=== PATIENT | female | born 1980 | race African-American/Black ===

== ENCOUNTER 2016-11-27 21:08 | Observation (INO) ==
[2016-11-27] MEDS ORDERED: NITROGLYCERIN SL 0.4 MG TABLET SL STA (21:56)
[2016-11-27] MEDS ORDERED: NITROGLYCERIN SL 0.4 MG TABLET SL ONE (21:56)
[2016-11-27] MEDS ORDERED: MORPHINE 2 MG/1 ML SYRINGE ONE (21:56)
[2016-11-27] MEDS ORDERED: ONDANSETRON 4 MG/2 ML VIAL IV STA (21:56)
[2016-11-27] MEDS ORDERED: MORPHINE 2 MG/1 ML SYRINGE IV STA (21:56)
[2016-11-27] MEDS ORDERED: ONDANSETRON 4 MG/2 ML VIAL ONE (21:56)
[2016-11-27 22:04] LABS: Basophils # 0.1 10*3/uL (0.0-0.2); Basophils % 0.6 % (0.0-0.8); Eosinophils # 0.2 10*3/uL (0.0-0.87); Eosinophils % 2.2 % (0.00-10.9); Immature Granulocytes % 0.4 %; Immature Granulocytes Absolute 0.04 #; Lymphocytes # 3.3 10*3/uL (1.4-4.0); Lymphocytes % 32.5 % (21.3-54.2); Mean Corpuscular HGB Conc 33.3 GM/DL (32-36); Mean Corpuscular Hemoglobin 30 PG (27-34); Mean Corpuscular Volume 90.9 FL (87-102); Mean Platelet Volume 10.4 FL (9.6-12.0); Monocytes # 0.6 10*3/uL (0.11-0.8); Monocytes % 5.8 % (1.7-12.7); Neutrophils # 5.9 10*3/uL (1.4-7.4); Neutrophils % 58.5 % (38.7-73.9); Platelet Count 366 T/CUMM (130-400); Red Blood Count 3.63 MC/CUMM (3.8-5.5); Red Cell Distribution Width 12.9 % (9.3-17.3); White Blood Count 10.1 T/CUMM (4-12)
[2016-11-27 22:13] LABS: PT Patient Result 10.4 SECS; Partial Thromboplastin Time 27.9 SECS (0-40)
--- NOTE | 2016-11-27 22:17 | Emergency Department Note ---
I, Beth Byrnes, am scribing for, and in the presence of, Adilia Colby DO 22: 05. I, Adilia Cobly DO, personally performed the services described in this documentation, ascribed by Beth Byrnes in my presence, and it is both accurate and complete . 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 She states this has happened before but she has not seeked medical help. Pt reports the pain is in the middle of her chest. Pt denies a burning pain, abdominal pain , SOB, N/V, or a sour taste in her mouth. Pt states she thought the pain was gas. Pt denies a family history of heart problems at a young age. She reports she does have DM, HTN, and high cholesterol that she does take medication for. Pt states her job "gets on her nerves" and the pain is every now and then when she is not at work. Pt is crying during exam and states it is due to the pain and she is "sensitive." Pt's PCP is Dr. Bower. No other complaints/pain in ED. Onset (ago): hour(s) Consistency: constant Severity: mild, moderate Quality: sharp Date of Last Menstrual Period: NOW Allergies/Adverse Reactions: Allergies Allergy/AdvReac Type Severity Reaction Status Date / Time No Known Allergies Allergy Unverified 11/27/16 21:15 Review of System - Review of System 12 point system: reviewed and no additional remarkable complaints except as stated - Review of System Constitutional: Absent: fever Head/Ears/Nose/Throat: Absent: earache Respiratory: Absent: cough, respiratory distress Cardiovascular: Present: chest pain Gastrointestinal: Absent: abdominal pain, nausea, vomiting Musculoskeletal: Absent: arm pain, back pain, leg pain, neck pain Skin: Absent: rash Neurological: Absent: headache Medical,Surgical,& Family Hx - Medical History Cardio: History of: Hypertension Endocrine: History of: Diabetes Mellitus (IDDM), Dyslipidemia - Family History Family History: Reports;: Family Cancer, Family Diabetes, Family Hypertension - Social History Smoking Status: Never smoker Frequency of Alcohol Use: Rarely Type of Drug Use: None Exam Vital Signs: Vital Signs Temperature 97.4 F L 11/27/16 21:20 Pulse Rate 114 H 11/27/16 21:20 Respiratory Rate 20 11/27/16 21:20 Blood Pressure 181/107 11/27/16 21:20 O2 Sat by Pulse Oximetry 97 11/27/16 21:15 - General General appearance: alert, in no apparent distress - Head Head exam: Present: atraumatic, normocephalic - Eye Eye exam: Present: PERRL, EOMI - ENT ENT exam: Present: mucous membranes moist. Absent: mucous membranes dry - Neck Neck exam: Present: full ROM. Absent: tenderness - Chest Chest inspection: Present: symmetric chest wall rise. Absent: tenderness - Respiratory Respiratory exam: Present: normal lung sounds bilaterally. Absent: respiratory distress - Cardiovascular Cardiovascular exam: Present: regular rate, normal rhythm, normal heart sounds - Abdominal Exam Abdominal exam: Present: soft. Absent: tenderness - Extremities Exam Extremities exam: Present: full ROM. Absent: tenderness, pedal edema - Back Exam Back exam: Present: full ROM. Absent: tenderness - Neurological Exam Neurological exam: Present: alert, oriented X3, CN II-XII intact. Absent: motor sensory deficit - Psychiatric Psychiatric exam: Present: normal affect, normal mood - Skin Skin exam: Present: warm, dry Course Course Narrative: Patient improved with morphine and sublingual nitro. Will be admitted for chest pain with serial cardiac enzymes done to Dr. Karthik Escalona hospitalist who agrees to admission. Patient is stable at this time Results - Labs CBC & BMP: 11/27/16 21:13 11/27/16 21:13 Lab Results: I have reviewed the patients labs Labs: Laboratory Tests 11/27/16 21:13 RBC 3.63 L Hgb 11.0 L Hct 33.0 L Laboratory Tests 11/27/16 11/27/16 11/27/16 21:13 21:13 21:13 INR 1.0 PT Patient/Control Mix 10.4 Circ Anticoag PTT 27.9 Anion Gap 16.8 H Glucose 178 H Total Creatine Kinase 238 H B-Natriuretic Peptide < 2 L Globulin 3.9 H Albumin/Globulin Ratio 0.9 L - EKG EKG results: interpreted by ERMD, sinus rhythm EKG shows: tachycardia - Diagnostic Findings Procedure: Chest x-ray: report reviewed by me (No acute cardiopulmonary pathology identified.) Disposition Clinical Impression: Chest pain Case discussed with: patient, patient's family Disposition: Still a Patient Condition: Stable Time of Disposition: 23:19
[2016-11-27 22:25] LABS: Alanine Aminotransferase 15 U/L (13-56); Albumin 3.8 G/DL (3.4-5.0); Alkaline Phosphatase 90 U/L (45-117); Aspartate Amino Transferase 13 U/L (0-37); Bilirubin,Total < 0.39 MG/DL (0.2-1.0); Blood Urea Nitrogen 13 MG/DL (7-18); Calcium 9.3 MG/DL (8.5-10.1); Glucose 178 MG/DL (74-106); Osmolality,Calculated 284.3 MOS/KG (273-304); Potassium 3.8 MMOL/L (3.5-5.1); Sodium 141 MMOL/L (136-145); Total Protein 7.7 G/DL (6.4-8.3); Troponin I Only < 0.015 NG/ML (0.00-0.045)
--- NOTE | 2016-11-27 22:29 | XRay Report ---
Portable chest Date: 11/27/2016 Clinical history: Chest pain Comparison: None Technique: Portable AP sitting chest Findings: The heart is normal in size. The lungs are clear. Unremarkable mediastinum and osseous structures. Overlapping soft tissues of the left lung base. Impression: No acute cardiopulmonary pathology identified. PROCEDURE INTERPRETED AT [facility] DEPARTMENT OF RADIOLOGY Final Report Signed by: Dr. Ana Hidalgo
--- NOTE | 2016-11-28 01:42 | Hospitalist History & Physical ---
Assessment and Plan (1) History of hypertension Status: Acute Current Visit: Yes (2) Diabetes Status: Acute Current Visit: Yes (3) History of increased cholesterol Status: Acute Current Visit: Yes (4) Chest pain Status: Acute Assessment and plan: Our plan for this patient will be admitting her to the telemetry. Draw serial cardiac enzymes and consult cardiology. Continue home meds as appropriate monitor her Accu-Cheks. Current Visit: Yes History of Present Illness Chief complaint: Chest pain History of present illness: Ms. Marquez is a 36 year old female with past medical history significant for increased cholesterol, hypertension and diabetes who was in his normal state of health until last . 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 She says last at work she developed a pain on the left side of her chest. She describes it as sharp. And it resolved. She did not seek medical attention. Then tonight while back at work the pain returned. She broke out in a cold sweat. It did not really make her short of breath. There is no exertional component associated with it. She got concerned and thought she was having a heart attack came to our hospital for further evaluation. I was consulted for admission. Allergies Allergy/AdvReac Type Severity Reaction Status Date / Time No Known Allergies Allergy Unverified 11/27/16 21:15 Medical,Surgical,& Family Hx - Medical History Cardio: History of: Hypertension Endocrine: History of: Diabetes Mellitus (IDDM), Dyslipidemia - Surgical History Reproductive Surgeries: Surgical HX of;: Dilation and Curettage - Family History Family History: Reports;: Family Cancer, Family Diabetes, Family Hypertension - Social History Smoking Status: Never smoker Frequency of Alcohol Use: Rarely Type of Drug Use: None 12 point system: reviewed and no additional remarkable complaints except as stated Exam - Constitutional Vitals: Period Temp Pulse Resp BP Sys/Jose Pulse Ox Last 24 Hr 97.4 F-97.4 F 114-114 18-20 181-181/107-107 97 General appearance: morbidly obese - Head Head exam: Present: normal inspection - Eye Eye exam: Present: EOMI Pupils: Present: LUIGI - ENT ENT exam: Present: normal exam - Neck Neck exam: Present: normal inspection - Respiratory Respiratory exam: Present: clear to auscultation bilaterally - Cardiovascular Cardiovascular exam: Present: regular rate and rhythm - GI/Abdominal GI/Abdominal exam: Present: normal bowel sounds - Extremities Exam Extremities exam: Present: normal inspection - Back Exam Back exam: Present: normal inspection - Neurological Exam Neurological exam: Present: alert - Psychiatric Psychiatric exam: Present: normal affect - Skin Skin exam: Present: normal color Results - Labs CBC & BMP: 11/27/16 21:13 11/27/16 21:13
[2016-11-28] MEDS ORDERED: ONDANSETRON 4 MG/2 ML VIAL IV PRN (01:50)
[2016-11-28] MEDS ORDERED: ZALEPLON 5 MG CAPSULE PO PRN (01:50)
[2016-11-28] MEDS ORDERED: DEXTROSE 50% 25 GM/50 ML VIAL IV PRN (01:59)
[2016-11-28] MEDS ORDERED: GLUCAGON 1 MG VIAL IM PRN (01:59)
[2016-11-28] MEDS ORDERED: INSULIN REGULAR 100 UNIT/ML ONE (02:53)
[2016-11-28] MEDS ORDERED: INSULIN REGULAR 100 UNIT/ML SUBCUT STA (02:56)
[2016-11-28] MEDS ORDERED: NITROGLYCERIN 2% OINT 1 INCH/GM PACK TOP ONE (05:34)
--- NOTE | 2016-11-28 05:39 | EKG Report ---
Please refer to the EKG image. Final interpretation is pending.
[2016-11-28] MEDS: NITROGLYCERIN 2% OINT 1 INCH/GM PACK TOP SCH ×3 (05:51→17:10)
--- NOTE | 2016-11-28 06:03 | EKG Report ---
Please refer to the EKG image. Final interpretation is pending.
[2016-11-28] MEDS ORDERED: ASPIRIN EC 325 MG TABLET PO SCH (09:00)
[2016-11-28] MEDS ORDERED: ENOXAPARIN 40 MG/0.4 ML SYRINGE SUBCUT SCH (09:00)
--- NOTE | 2016-11-28 09:16 | EKG Report ---
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
--- NOTE | 2016-11-28 09:21 | EKG Report ---
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
[2016-11-28] MEDS ORDERED: ENOXAPARIN 40 MG/0.4 ML SYRINGE ONE (09:51)
[2016-11-28] MEDS ORDERED: ASPIRIN 325 MG TABLET ONE (09:51)
[2016-11-28] MEDS: INSULIN REGULAR 100 UNIT/ML SUBCUT SCH ×3 (11:46→17:06)
[2016-11-28 11:52] LABS: Risk Ratio 3.71
[2016-11-28] MEDS ORDERED: INFLUENZA VIRUS VACCINE 0.5 ML SYRINGE IM ONE (12:00)
--- NOTE | 2016-11-28 14:34 | Cardiology Consult Note ---
<Jaimie Talbert - Last Filed: 11/28/16 15:08> Assessment and Plan - Time spent with patient Time spent with patient: Greater than 30 minutes (1) Chest pain Status: Acute Assessment and plan: Troponin has been negative 4 checks. EKG does not reveal any acute findings. Will keep patient n.p.o. for stress testing in order to define etiology of patient's chest pain. Current Visit: Yes (2) Diabetes Status: Chronic Assessment and plan: Defer management to hospitalist. Current Visit: Yes (3) History of hypertension Status: Chronic Assessment and plan: This seems to be well controlled. No need to adjust medications at this time. Current Visit: Yes (4) History of increased cholesterol Status: Chronic Assessment and plan: LDL of 104 noted. Will switch patient from simvastatin to Crestor at this time to help patient reach LDL goal. Current Visit: Yes History of Present Illness - Data of Consult Patient: new to practice Consult date: 11/28/16 Requesting Physician: Karthik Barron - Consult Narrative Reason for consult: Chest pain History of present illness: Ms. Marquez is a 36 year old female without a known history of coronary artery disease, routinely followed by cardiology. Her primary care provider is Dr. Bower. She presented to the ER yesterday with complaints of chest pain. She has cardiac risk factors significant for hyperlipidemia, hypertension, diabetes , sedentary lifestyle and obesity. She denies any significant family history of cardiac disease. She reports that she has never smoked in the past. She has never underwent heart catheterization or cardiac stress testing. She was in her usual state of health until yesterday when she began to experience chest pain at approximately 7 PM. 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 She describes this as a nonradiating sharp pain located to the left side of her chest. She tells me that this was ongoing until she got to the ER. He was then relieved with morphine and nitroglycerin. Her chest pain was not worsened with exertion and was unassociated with shortness of breath and nausea. She does however report associated diaphoresis and heart racing/ palpitations. She is unable to rate her pain. Patient denies fever, chills, cough, nausea, vomiting, abdominal pain, melena, orthopnea, PND and lower extremity swelling. Her symptoms were very concerning to her. Today she presented to the ER for further evaluation. Patient was admitted under hospitalist's service and housed on the telemetry floor. Cardiology has been consulted to further evaluate her chest discomfort. Of note, patient reports that this was not her first episode of chest discomfort. She tells me that this only happens when she is at work under stress. She tells me that this never occurs during exercise or with exertion. She denies dyspnea on exertion and easy fatigability. She was seen and examined on telemetry. Upon entering the room, patient was up ambulating around her room in no acute distress. She has been chest pain-free since admission to the hospital. Her troponin has been negative 4 checks. Her EKG is not concerning for ACS. No prior EKG is available for comparison. BNP is less than 2. Telemetry has been reviewed. She is currently in sinus rhythm with heart rates in the 90s without any overt arrhythmias or ectopy noted. We will continue to monitor patient on telemetry. Active Medications Aspirin () 325 mg PO DAILY [facility] Last Admin: 11/28/16 09:56 Dose: 325 mg Dextrose/Water (D50) 25 gm IV PRN PRN PRN Reason: Hypoglycemia with IV access Enoxaparin Sodium (Lovenox) 40 mg SUBCUT Q24H [facility] Last Admin: 11/28/16 09:57 Dose: 40 mg Glucagon () 1 mg IM PRN PRN PRN Reason: Hypoglycemia w/o IV access Insulin Human Regular (Humulin R) 0 unit SUBCUT ACHS CHARY PRN Reason: Protocol Last Admin: 11/28/16 12:07 Dose: Not Given Nitroglycerin (Nitro Bid Oint) 0.5 inch TOP Q6HR [facility] Last Admin: 11/28/16 12:07 Dose: 0.5 inch Ondansetron HCl (Zofran Inj) 4 mg IV Q4H PRN PRN Reason: Nausea/Vomiting Rosuvastatin Calcium (Crestor) 10 mg PO BEDTIME CHARY Zaleplon (Sonata) 5 mg PO BEDTIME PRN PRN Reason: Sleep CC: Karthik Barron MD - Home Medications and Allergies Home Medications: Home Medications Medication Instructions Recorded Confirmed Type Biotin 1 mg PO QAM 11/28/16 11/28/16 History Cod Liver Oil 1 each PO QAM 11/28/16 11/28/16 History Hum Insulin NPH/Reg Insulin Hm 70 unit SUBCUT QPM 11/28/16 11/28/16 History [NovoLIN 70/30] Hum Insulin NPH/Reg Insulin Hm 90 unit SUBCUT QAM 11/28/16 11/28/16 History [NovoLIN 70/30] Metformin HCl [Metformin HCl] 1,000 mg PO BID 11/28/16 11/28/16 History Multivits,Ca,Minerals/Iron/FA [One 1 each PO QAM 11/28/16 11/28/16 History Daily Women's Health Tab] Quinapril HCl [Quinapril HCl] 20 mg PO QAM 11/28/16 11/28/16 History Simvastatin [Simvastatin] 10 mg PO BEDTIME 11/28/16 11/28/16 History hydroCHLOROthiazide 25 mg PO QAM 11/28/16 11/28/16 History [Hydrochlorothiazide] Allergies/Adverse Reactions: Allergies Allergy/AdvReac Type Severity Reaction Status Date / Time No Known Allergies Allergy Unverified 11/27/16 21:15 - Constitutional Constitutional: Absent: chills, fatigue, fever(s), frequent falls, lethargy, malaise, weakness, weight gain, weight loss - Cardiovascular Cardiovascular: Present: as per HPI, diaphoresis, palpitations. Absent: claudication, dyspnea, dyspnea on exertion, edema, radiating jaw, neck or arm pain, lightheadedness, orthopnea, PND - Respiratory Respiratory: Absent: cough, dyspnea, hemoptysis, dyspnea on exertion, wheezing, snoring, pain on inspiration, change in phlegm color - Gastrointestinal Gastrointestinal: Absent: abdominal pain, change in bowel habits, coffee ground emesis, constipation, cramping, diarrhea, dyspepsia, heartburn, hematemesis, hematochezia, loose stools, melena, nausea, vomiting - Neurological Neurological: Absent: abnormal gait, abnormal speech, behavioral changes, disequilibrium, dizziness, frequent falls, headache(s), syncope - Hematologic/Lymphatic Hematologic/Lymphatic: Absent: easy bleeding, easy bruising, lymphadenopathy Medical,Surgical,& Family Hx - Medical History Cardio: History of: Hypertension Endocrine: History of: Diabetes Mellitus (IDDM), Dyslipidemia - Surgical History Reproductive Surgeries: Surgical HX of;: Dilation and Curettage - Family History Family History: Reports;: Family Cancer, Family Diabetes, Family Hypertension - Social History Smoking Status: Never smoker Frequency of Alcohol Use: Rarely Type of Drug Use: None Physical Examination Vital Signs Resp 18 03/15/17 21:10 General: Present: Appears Well, No Apparent Distress Neck: Present: Supple Neck, Midline Trachea, No JVD/HJR, No Masses, No Bruit, No Lymphadenopathy, No Thyromegaly Cardiac: Present: Reg Rate and Rhythm, Regular Rate, Regular Rhythm, S1/S2, No Murmur. Absent: Gallop Lungs: Present: Normal Exam, Clear Ascult./Percussion, Normal Breath Sounds, No Wheeze, Rales, Rhonchi. Absent: Oxygen Neuro: Present: Cranial Nerve 2-12 Intact, Grossly Intact Abdomen: Present: Soft, Active Bowel Sounds, No Masses, Non-Tender. Absent: Firm, Distended Skin: Present: Clear. Absent: Rash, Suspicious Lesions, Ulceration Gait: Present: Normal Gait Extremities: Present: Normal Gait, No Clubbing, No Cyanosis, No Edema, Normal Upper Extr. Pulses, Normal Lower Extr. Pulses Result/EKG - Labs CBC & BMP: 11/27/16 21:13 11/27/16 21:13 Lab Results: I have reviewed the past 24 hour labs Labs: Laboratory Results - last 24 hr 11/28/16 11/28/16 11/28/16 02:26 02:32 05:42 POC Glucose 166 H Troponin I < 0.015 < 0.015 Triglycerides Cholesterol LDL Cholesterol VLDL Cholesterol HDL Cholesterol Heart Disease Risk Ratio 11/28/16 11/28/16 11/28/16 07:50 09:19 09:19 POC Glucose 199 H Troponin I < 0.015 Triglycerides 160 H Cholesterol 167 LDL Cholesterol 104.0 VLDL Cholesterol 32.0 HDL Cholesterol 45 Heart Disease Risk Ratio 3.71 11/28/16 12:01 POC Glucose 248 H Troponin I Triglycerides Cholesterol LDL Cholesterol VLDL Cholesterol HDL Cholesterol Heart Disease Risk Ratio <Timmy Viveros - Last Filed: 11/28/16 17:33> History of Present Illness - Consult Narrative History of present illness: I have seen, interviewed, examined the patient and reviewed his chart and discussed the case with the mid-level provider and agree with the plan as outlined in the note. CC: Stanton Blue MD Physical Examination Vital Signs Resp 18 11/27/16 21:10 Result/EKG - Labs CBC & BMP: 11/27/16 21:13 11/27/16 21:13 Labs: Laboratory Results - last 24 hr 11/28/16 11/28/16 11/28/16 02:26 02:32 05:42 POC Glucose 166 H Troponin I < 0.015 < 0.015 Triglycerides Cholesterol LDL Cholesterol VLDL Cholesterol HDL Cholesterol Heart Disease Risk Ratio 11/28/16 11/28/16 11/28/16 07:50 09:19 09:19 POC Glucose 199 H Troponin I < 0.015 Triglycerides 160 H Cholesterol 167 LDL Cholesterol 104.0 VLDL Cholesterol 32.0 HDL Cholesterol 45 Heart Disease Risk Ratio 3.71 11/28/16 11/28/16 12:01 16:37 POC Glucose 248 H 206 H Troponin I Triglycerides Cholesterol LDL Cholesterol VLDL Cholesterol HDL Cholesterol Heart Disease Risk Ratio
[2016-11-28 16:48] VITALS: BP 142/80
--- NOTE | 2016-11-28 17:26 | Event Note ---
Underwent nuclear stress testing without difficulty. Achieved target heart rate within the first stage of Kwadwo protocol. However, continued for approximately a total of 4-1/2 minutes. No chest pain, heaviness or tightness noted. Mild shortness of breath with exertion. No ST or EKG changes noted. No arrhythmia noted. Poor exercise tolerance. Patient is now being transitioned to nuclear medicine for final scan. Dr. Viveros to read, interpreted and advise.
--- NOTE | 2016-11-28 17:34 | Event Note ---
The patient's nuclear stress test shows no evidence of cardiac ischemia and normal left ventricular systolic function. From a cardiac standpoint, I think she could be discharged home. It appears that her symptoms are not from cardiac ischemia.
--- NOTE | 2016-11-28 17:42 | Discharge Summary ---
Hospital Course - Hospital Course Hospital Course: Ms. Marquez is a 36 year old female with past medical history significant for increased cholesterol, hypertension and diabetes who was in his normal state of health until last . 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 She says last at work she developed a pain on the left side of her chest. She describes it as sharp. And it resolved. She did not seek medical attention. Then tonight while back at work the pain returned. She broke out in a cold sweat. It did not really make her short of breath. There is no exertional component associated with it. She got concerned and thought she was having a heart attack came to our hospital for further evaluation. I was consulted for admission. Patient was monitored in telemetry. Serial cardiac enzymes were negative. Cardiology was consulted and she had a negative stress test. Patient's met her maximum benefit from this hospitalization we are discharging her home. - Time spent with patient Time with patient DS: Less than 30 minutes Diagnosis - Discharge Diagnosis (1) History of hypertension Status: Chronic (2) Diabetes Status: Chronic (3) History of increased cholesterol Status: Chronic (4) Chest pain Status: Acute Discharge Plan - Discharge Data Disposition: Disch To Home/Self Care Condition at Discharge: Stable Discharge Diet: advance to your usual diet Activity: resume usual activities as tolerated - Discharge Medications Continue Simvastatin 10 mg PO BEDTIME Quinapril HCl 20 mg PO QAM Cod Liver Oil 1 each PO QAM Hum Insulin NPH/Reg Insulin Hm [NovoLIN 70/30] 70 unit SUBCUT QPM Hum Insulin NPH/Reg Insulin Hm [NovoLIN 70/30] 90 unit SUBCUT QAM Metformin HCl 1,000 mg PO BID Multivits,Ca,Minerals/Iron/FA [One Daily Women's Health Tab] 1 each PO QAM Biotin 1 mg PO QAM hydroCHLOROthiazide [Hydrochlorothiazide] 25 mg PO QAM - Follow Up or Referral - Forms/Instructions Additional Discharge Instructions: Follow-up with your primary care provider as needed Exam - Constitutional Vitals: Period Temp Pulse Resp BP Sys/Jose Pulse Ox Last 24 Hr 96.5 F-98.1 F 91-109 16-20 123-143/69-99 95-100 Unchanged from previous exam earlier today Discharge Results Procedures and tests throughout hospitalization: Pending Orders 11/28/16 14:36 NM josef perf SPECT rest or str Routine Labs on day of discharge: Labs from last 24 hours 11/28/16 11/28/16 11/28/16 16:37 12:01 09:19 POC Glucose 206 H 248 H Troponin I Triglycerides 160 H Cholesterol 167 LDL Cholesterol 104.0 VLDL Cholesterol 32.0 HDL Cholesterol 45 Heart Disease Risk Ratio 3.71 11/28/16 11/28/16 11/28/16 09:19 07:50 05:42 POC Glucose 199 H Troponin I < 0.015 < 0.015 Triglycerides Cholesterol LDL Cholesterol VLDL Cholesterol HDL Cholesterol Heart Disease Risk Ratio 11/28/16 11/28/16 02:32 02:26 POC Glucose 166 H Troponin I < 0.015 Triglycerides Cholesterol LDL Cholesterol VLDL Cholesterol HDL Cholesterol Heart Disease Risk Ratio DS: Provider Date of admission: 11/28/16 01:50 Primary care physician: . No PCP Attending physician on admission: Karthik Barron MD Discharging clinician: Karthik Barron MD
[2016-11-28] MEDS ORDERED: ROSUVASTATIN 10 MG TABLET PO SCH (21:00)
--- NOTE | 2016-11-29 15:29 | Nuclear Medicine Report ---
STRESS MYOCARDIAL PERFUSION STUDY DATE OF PROCEDURE: 11/28/2016 Ms. Marquez has cardiac risk factors and presented with chest pain symptoms. She is undergoing a str ess myocardial perfusion study for cardiac risk evaluation. The patient underwent a rest myocardial perfusion study after 10 mCi dose of Technetium-99m bound to Sestamibi. She then underwent a full Sherwin protocol stress test. She exercised for 4 minutes and 2 seconds achieving a maximum heart rat e of 159 beats per minute, which is 87% of her age-predicted maximum. The test was stopped secondar y to the target heart rate being achieved. Near peak exercise she received a 30 mCi dose of Technet ium-99m bound to Sestamibi and repeat myocardial perfusion imaging was performed. Comparison of the stress and rest myocardial perfusion images reveals no evidence of cardiac ischemia. There is some very mild apical breast attenuation artifact, but otherwise there is normal perfusion. Quantitativ e perfusion analysis calculates a summed stress score of 1, which is also consistent with a low risk of significant ischemia. Quantitative gated images calculate a left ventricular ejection fraction of 70% with normal regional wall motion. IMPRESSION: 1. CLINICALLY AND ELECTRICALLY NEGATIVE MAXIMAL FULL SHERWIN PROTOCOL STRESS TEST. 2. THERE IS NO EVIDENCE OF SIGNIFICANT ISCHEMIA ON PERFUSION IMAGING. 3. THERE IS NORMAL LEFT VENTRICULAR FUNCTION ON THIS STUDY. CONCLUSION: These results are most consistent with a low risk test. Procedure performed and interpreted at [facility] Department of Radiology. CC:
== END 2016-11-28 18:52 | disposition home or self-care (01) ==
LOC: N.ED 21:08 → N.EDINP 21:08 → SUATTDRO 11-28 01:50 → N.TELES 11-28 11:19
PROVIDERS: ADMIT Internal Medicine; ATTEND Student in an Organized Health Care Education/Training Program